=== PATIENT | female | born 1950 | race Caucasian/White ===

== ENCOUNTER 2017-04-13 00:42 | Day surgery (SDC) | payer MEDICARE, MEDICAID ==
[~2017-04-13 00:42] MED LIST: ARFO15VI2 IH; ATRV10T PO; BUDE0.5A NEB; DILT360C26 PO; DOCU250C2 PO; FLUO40CA12 PO; FRSM80T PO; IMAT400T PO; INSLIS SUBQ; INSU100I13 SUBQ; IPRA3AMP IH; Insulin Lispro SUBQ; MELA1TAB10 PO; POTASSIUM PO; PRE10 PO; QUET25TA PO; TORS20TA PO; WARF2.5T82 PO; WARF5TAB7 PO
[2017-04-13] MEDS ORDERED: SPIR50TA2 PO (11:20)
[2017-04-13] MEDS ORDERED: ACET325T51 PO (11:20)
--- NOTE | 2017-04-13 11:22 | NUR ---
Bladder scan PVR results are zero mls in bladder. No intervention indicated.
== END 2017-04-13 23:59 | disposition home or self-care (01) ==
LOC: MOCO 00:42
PROVIDERS: ATTEND Student in an Organized Health Care Education/Training Program
DX: R33.9 Retention of urine, unspecified (principal)
CPT/HCPCS: 51798; G0463

== ENCOUNTER 2017-04-16 07:07 | Emergency (ER) | payer MEDICARE, MEDICAID ==
[~2017-04-16] VITALS: Ht 165.1 cm; Wt 129.6 kg
[~2017-04-16 07:07] MED LIST changes: +ACET325T51 PO; +SPIR50TA2 PO
[2017-04-16 07:25] VITALS: BP 126/53; PULSE 74; RESP 20; O2SAT 99
--- NOTE | 2017-04-16 07:30 | ED.REPORT ---
HPI-General Illness Date of Service April 16, 2017 ED Provider: Jak Camarillo MD 67 year old female with a history of diabetes, GERD, COPD, HTN, and Hyperlipidemia presents to the ER via EMS from [facility] due to low blood sugar. Her blood sugar is typically in the 200's. When staff contacted a local physician they were instructed to increase patient's Lantus dose. This morning her sugar dropped to the 40's and staff called EMS. Staff at [facility] also note that patient has been increasingly confused lately, that she suffered a ground level fall yesterday, unwitnessed. Currently the patient complains of a mild headache, but denies any pain or other symptoms. Nursing Notes Stated Complaint: LOW BLOOD SUGAR Chief Complaint: General Complaint Nursing Notes Reviewed: Yes Allergies: Coded Allergies: amlodipine (Verified Allergy, Unknown, 11/21/14) latex (Verified Adverse Reaction, Intermediate, Rash, 05/19/11) JESSICA Inhibitors (Verified Adverse Reaction, Mild, COUGH, 09/18/09) montelukast (Verified Adverse Reaction, Mild, DIARRHEA, 09/18/09) Scheduled ([Insulin Lispro]) 100 UNIT/ML INJ 10 UNIT SUBQ AC ([Potassium]) PO DAILY UNSURE OF STRENGTH Arformoterol Tartrate (Brovana) 15 Mcg/2 Ml Vial.neb 15 MCG IH BID Atorvastatin (Lipitor) 10 Mg Tab 10 MG PO HS Budesonide (Pulmicort) 0.5 Mg/2 Ml Nebu 0.5 MG NEB BID Diltiazem ER (Cardizem CD) 360 Mg Cap.er.24h 360 MG PO DAILY Docusate Sodium (Docusate Sodium) 250 Mg Capsule 250 MG PO BID Famotidine (Famotidine) 20 Mg Tablet 20 MG PO BID Fluoxetine (Prozac) 40 Mg Capsule 40 MG PO DAILY Furosemide (Furosemide) 80 Mg Tab 40 MG PO AM Imatinib Mesylate (Gleevec) 400 Mg Tablet 400 MG PO DAILY Insulin Glargine (Lantus U100 Solostar Insulin Pen) 100 Unit/Ml Inj 27 UNIT SUBQ INS Insulin Human Lispro (HumaLOG U100 Insulin Vial) 100 Unit/Ml Unit 0 SUBQ TID- INSULIN Check blood sugars before meals and at bedtime. Use correction factor only before meals. Blood Sugar Lispro Correction: <151, 0 units; 151-175, 1 unit; 176-200, 2 units; 201-225, 3 units; 226-250, 4 units; 251-275, 5 units; 276-300 , 6 units; 301-325, 7 units; 326-350, 8 units; 351-375, 9 units; 376-400, 10 units; >400, 12 units. Insulin Human Lispro (HumaLOG U100 Insulin Vial) 100 Unit/Ml Unit 8 UNIT SUBQ TIDWM Ipratropium/Albuterol Sulfate (Iprat-Albut 0.5-3(2.5) mg/3 mL Inhalant Soln) 3 Ml Ampul.neb 3 ML IH QID Melatonin (Melatonin 1 mg Tablet) 1 Each Tablet 9 MG PO HS Prednisone (PredniSONE) 10 Mg Tablet 0 PO DAILY Prednisone taper: Take 2 tabs po b.i.d. for 2 days; then take 2 tabs in the morning and 1 tab in the evening for 3 days; then take 1 tab po b.i.d for 3 days ; then take 1 tab po daily for 3 days. Spironolactone (Spironolactone) 50 Mg Tablet 50 MG PO DAILY Torsemide (Demadex) 20 Mg Tablet 20 MG PO DAILY Warfarin Sodium (Warfarin Sodium) 5 Mg Tablet 5 MG PO SuTuThSa Warfarin Sodium (Warfarin Sodium) 2.5 Mg Tablet 2.5 MG PO MOWEFR Scheduled PRN Acetaminophen (Acetaminophen) 325 Mg Tablet 650 MG PO Q4H PRN PRN For Fever Hydrocodone-Acetaminophen 5-325 mg (Hydrocodone-Acetaminophen 5-325 mg) 1 Each Tablet 1 TABLET PO Q6H PRN PRN For Pain Quetiapine Fumarate (Seroquel) 25 Mg Tablet 25 MG PO HS PRN PRN For Insomnia General Time Seen by MD: 07:28 Chief Complaint Other (Low Blood Sugar) Hx Obtained From: Patient Arrived By: Ambulance Sudden in Onset?: No Onset Occurred: 1 - 4 hours ago Symptom Duration: Since onset Context Related History: Reports COPD, Reports Diabetes mellitus Similar Sx Previous: No Past Medical History Past Medical History Acute hypoxic respiratory failure post hernia repair (2010) Morbidly obese History of atypical chest pain Restless leg syndrome Reports: Asthma, COPD, Diabetes mellitus, GERD, Hyperlipidemia, Hypertension Past Surgical History Umbilical hernia repiar Family History Noncontributory Smoking History Never Smoker Social History Other Social History: Ambulatory Status Wheelchair Review of Systems Full Review of Systems Musculoskeletal: Denies: Back pain, Extremity pain, Joint pain, Lumbar pain, Neck pain, Thoracic pain Neurologic: Reports: Confusion, Headache Complete sys rev & neg: except as marked. Physical Exam Vital Signs Vital Signs Date Time Temp Pulse Resp B/P Pulse Ox O2 Delivery O2 Flow Rate FiO2 04/16/17 09:41 35.2 84 22 129/63 98 Nasal Cannula 4 04/16/17 09:18 84 22 129/63 98 Nasal Cannula 4 04/16/17 07:53 84 16 132/55 98 04/16/17 07:25 35.2 74 20 126/53 99 Nasal Cannula 4 Initial VS: Reviewed Extremities: Vascular intact, Neuro intact, No swelling, No tenderness Skin: Warm, Dry, No cyanosis Neurologic: Alert General/Constitutional: Awake, Alert, Well developed Appearance / Presentation: Positive: Obese Head / Eyes: Normocephalic, PERRL, EOMI Subconjunctival hemorrhage, right eye. Neck: Supple, Full range of motion, No midline vertebral tend Respiratory / Chest: Breath sounds NL, No respiratory distress, No rales, No rhonchi, No wheezing Cardiovascular: Heart rate NL, Regular rhythm, Heart sounds NL, Cap refill not delayed, Peripheral circulation NL Abdomen: Soft, Non-tender, No guarding, No rebound Back: Inspection NL, Painless range of motion, Non-tender, No CVA tenderness Neurologic: Speech NL, No motor deficits, No sensory deficits, CN II - XII intact Mental Status: Positive: Disoriented to place Interpretation & Diagnostics Lab Results Interpretation Result Diagram: 04/16/17 0810 04/16/17 0810 Test 04/16/17 08:10 White Blood Count 5.4th/mm3 (3.8-10.1) Red Blood Count 3.33mil/mm3 (3.90-5.20) Hemoglobin 10.9g/dL (12.0-15.6) Hematocrit 33.0% (35.0-46.0) Mean Corpuscular Volume 99.1fL (81-100) Mean Corpuscular Hemoglobin 32.7pg (27.0-35.0) Mean Corpuscular Hemoglobin Concent 33.0% (32.0-37.0) Red Cell Distribution Width 16.1% (12.3-15.4) Platelet Count 255bil/L (150-400) Neutrophils (%) (Auto) 57.9% (40-74) Lymphocytes (%) (Auto) 20.9% (14-46) Monocytes (%) (Auto) 16.0% (4-12) Eosinophils (%) (Auto) 2.8% (0-5) Basophils (%) (Auto) 0.9% (0-3) Prothrombin Time 31.3sec (8.1-12.5) Prothromb Time International Ratio 2.86ratio Sodium Level 143mEq/L (134-144) Potassium Level 4.0mEq/L (3.5-5.2) Chloride Level 103mEq/L (97-108) Carbon Dioxide Level 30mmol/L (18-29) Blood Urea Nitrogen 23mg/dL (8-27) Creatinine 1.82mg/dL (0.57-1.00) Estimat Glomerular Filtration Rate 40mL/min (>59) Glucose Level 77mg/dL (60-99) Calcium Level 8.7mg/dL (8.5-10.1) Total Bilirubin 0.2mg/dL (0.0-1.2) Aspartate Amino Transf (AST/SGOT) 33U/L (0-50) Alanine Aminotransferase (ALT/SGPT) 22U/L (0-32) Alkaline Phosphatase 54U/L (25-165) Total Protein 5.0g/dL (6.4-8.4) Albumin 3.1g/dL (3.4-5.0) Hold [place] Top Tube Received (Received) CT Head Interpretation IMPRESSION: 1. Small right frontoparietal convexity subdural hematoma. No associated mass effect. 2. Small right frontal subdural calcification, benign 3. Mild age related atrophy and chronic deep white matter ischemic changes. 4. Chronic sinusitis. Note: Report called to Dr. Camarillo in the ED at 0813 hrs. on 04/16/2017 Dictated by: Gian Mitchell M.D. on 04/16/2017 at 8:02 Approved by: Gian Mitchell M.D. on 04/16/2017 at 8:16 Study: Head CT no contrast Interpretation / Wet Read by: Interpret - Radiologist Re-Eval/Medical Decision Med Decision/Clinical Course 67-year-old female history of atrial fibrillation on warfarin presenting with hypoglycemia from assisted living facility. Apparently they increased her Lantus last night and this morning her blood sugar was in the 40s to 50s. She had decreased level of consciousness. Paramedics arrived and gave her dextrose and her blood sugar stabilized. There was some questionable fall yesterday. The patient did not recall this. I did perform a CT head which showed a subdural hematoma on Coumadin. Her INR is 2.8. Per hospital protocol, 2500 units PCC and vitamin K 10 mg given. Patient's GCS was 15 at time of transfer to [facility] for higher level of care. Accepting doctor as above. Critical care time billed. Source of Hx: Old records Time of Eval: 08:52 Re-Evaluation/Progress Note: GCS [address] results and need for transfer to [facility]. Patient understands and agrees to the plan. All other questions addressed. Consultation : Call Returned at: 08:22 Note: Discussed patient case with Dr. Vargas, ER Physician at [facility], accetps transfer. Transport via airlift. Counseled Regarding: Diagnosis, Lab results, Need for transfer Discharge & Departure Primary Impression: Subdural hematoma Additional Impressions: Warfarin anticoagulation Hypoglycemia Disposition: Transfer, Acute Care Facility Receiving Hospital: [facility] Transfer Accepted: Yes Transfer Accepted at: 08:27 Transfer Reason: Higher level of care, Trauma Spoke with: Emergency physician (Dr. Vargas) Patient Status: Stable for transfer Patient Informed: Yes Discharge Condition All VS Reviewed: Yes Condition: Stable Referrals: Geri Joseph MD (PCP) Crit Care Except Billable Proc Time Spent: 30-74 minutes, 75-104 minutes (80 minutes) Services Performed: Patient management by me, Time spent at bedside, Reviewing test results, Reviewing imaging, Discussing patient care, Documentation in record Scribe Attestation Portions of this note were transcribed by Tor Emmanuel. I, Dr. Camarillo, personally performed the history, physical exam and medical decision-making; I reviewed and confirmed the accuracy of the information in the transcribed note. Signed by: Kel Cortez, 04/16/2017 at 09:05 copies to: Geri Joseph MD, Ben M MD April 16, 2017 07:30 TOR EMMANUEL April 16, 2017 07:39
[2017-04-16] MEDS ORDERED: 0.9% Sodium Chloride 500 ML IV ONE (07:37)
[2017-04-16] MEDS ORDERED: Ondansetron 2 mg/mL 2 mL Inj IV PRN (07:40)
[2017-04-16 07:53] VITALS: BP 132/55; PULSE 84; RESP 16; O2SAT 98
[2017-04-16 08:16] LABS: BASOPHILS % (AUTO) 0.9 % (0-3); EOSINOPHILS % (AUTO) 2.8 % (0-5); Mean Corpuscular Hemoglobin 32.7 pg (27.0-35.0); Mean Corpuscular Volume 99.1 fL (81-100); NEUTROPHILS % (AUTO) 57.9 % (40-74); Platelet Count 255 bil/L (150-400)
--- NOTE | 2017-04-16 08:17 | DRSVH ---
PROCEDURE: CT BRAIN WITHOUT CONTRAST ([id number]) INDICATIONS: trauma on blood thinners TECHNIQUE: Noncontrast 4.5 mm thick angled axial sections acquired from the foramen magnum to the vertex, with c oronal reformats. COMPARISON: None. FINDINGS: Image quality: Head is rotated within the gantry CSF spaces: Basal cisterns are patent. No extra-axial fluid collections. The ventricles are symmet mona in size and shape. Brain: A small focus of subdural radiodensity is present in the right frontal parietal region, 5 mm i n thickness by 8 mm in size, attenuation 82, compatible with hematoma. The underlying brain shows no apparent edema or mass effect. More inferiorly over the right frontal lobe is a 5 x 9 mm subdural calcification, attenuation 512, ca lcified dural plaque versus burned out meningioma. There is mild cerebral volume loss for age, with resultant ventricular and sulcal prominence. There are mild periventricular and deep white matter chronic small vessel ischemic changes. There is intra cranial internal carotid artery atherosclerosis. Skull and face: Asymmetry in the soft tissues overlying the frontal parietal region left greater bonny n right probably projectional related to rotation of the head, possibility of scalp edema or contusio n on the left not excluded. Correlate clinically. No underlying fracture. Calvarium and visualized fa cial bones appear intact, without suspicious lesions. Sinuses: Visualized sinuses show retention cysts or polyps in the maxillary sinuses and mucous membr ane thickening in the right anterior sphenoidal air cell, otherwise sinuses and mastoids are clear. IMPRESSION: 1. Small right frontoparietal convexity subdural hematoma. No associated mass effect. 2. Small right frontal subdural calcification, benign 3. Mild age related atrophy and chronic deep white matter ischemic changes. 4. Chronic sinusitis. Note: Report called to Dr. Camarillo in the ED at 0813 hrs. on 04/16/2017 Dictated by: Gian Mitchell M.D. on 04/16/2017 at 8:02 Approved by: Gian Mitchell M.D. on 04/16/2017 at 8:16
[2017-04-16] MEDS ORDERED: Phytonadione (Adult) 10 MG in Dextrose 5%-Pha MIX 50 ML IV ONE (08:30)
[2017-04-16 08:31] LABS: INR 2.86 ratio
[2017-04-16] MEDS ORDERED: FAMO20TA4 PO (08:33)
[2017-04-16] MEDS ORDERED: HYDR-4003 PO (08:34)
[2017-04-16] MEDS ORDERED: Phytonadione (Adult) 10 mg/50 mL NS IV ONE ×2 (08:40)
[2017-04-16] MEDS ORDERED: [UNRECOGNIZED DRUG - OTHER] IV ONE ×2 (08:45)
[2017-04-16] MEDS ORDERED: PROTHROMBIN COMPLEX IV ONE ×2 (08:45)
[2017-04-16 09:18] VITALS: BP 129/63; PULSE 84; RESP 22; O2SAT 98
[2017-04-16 09:41] VITALS: BP 129/63; PULSE 84; RESP 22; O2SAT 98
== END 2017-04-16 09:42 | disposition short-term general hospital (02) ==
LOC: SED 07:07 → EDBD 07:07 → SED 09:42
DX: I62.00 Nontraumatic subdural hemorrhage, unspecified (principal); E11.649 Type 2 diabetes mellitus with hypoglycemia without coma; W18.30XA Fall on same level, unspecified, initial encounter; Y92.129 Unspecified place in nursing home as the place of occurrence of the external cause; Y93.89 Activity, other specified; Y99.8 Other external cause status; K21.9 Gastro-esophageal reflux disease without esophagitis; J44.9 Chronic obstructive pulmonary disease, unspecified; I10 Essential (primary) hypertension; E78.5 Hyperlipidemia, unspecified; J45.909 Unspecified asthma, uncomplicated; E66.01 Morbid (severe) obesity due to excess calories; R40.2410 Glasgow coma scale score 13-15, unspecified time; Z68.42 Body mass index [BMI] 45.0-49.9, adult; Z79.01 Long term (current) use of anticoagulants; Z79.4 Long term (current) use of insulin; Z88.8 Allergy status to other drugs, medicaments and biological substances
CPT/HCPCS: 36415; 70450; 80053; 82948; 85025; 85610; 96361; 96374; 96375; 99291; 99292; C9132; J3430; J7030

== ENCOUNTER 2017-05-25 19:28 | Inpatient (IN) | payer MEDICARE, MEDICAID ==
[~2017-05-25] VITALS: Ht 167.6 cm; Wt 108.9 kg
[~2017-05-25 19:28] MED LIST changes: +FAMO20TA4 PO; +HYDR-4003 PO
[2017-05-25 19:31] VITALS: BP 115/67; PULSE 65; RESP 16; O2SAT 97
[2017-05-25 20:29] LABS: BASOPHILS % (AUTO) 0.1 % (0-3); EOSINOPHILS % (AUTO) 0.3 % (0-5); MONOCYTES % (AUTO) 7.2 % (4-12); Mean Corpuscular Hemoglobin 32.1 pg (27.0-35.0); Mean Corpuscular Volume 97.2 fL (81-100); NEUTROPHILS % (AUTO) 77.5 % (40-74); Platelet Count 213 bil/L (150-400)
[2017-05-25 21:02] LABS: Magnesium 2.3 mg/dL (1.6-2.6)
--- NOTE | 2017-05-25 21:03 | ED.REPORT ---
HPI-General Illness Date of Service May 25, 2017 ED Provider: Dr. Chele Ann MD A 67 year old female with a history of A-fib on Warfarin, diabetes mellitus, GERD, COPD, hypertension and hyperlipidemia presents to the ED from [facility] with hyperkalemia that began earlier this evening. Recent blood draw this afternoon revealed elevated K+ levels and she was directed to the ED. She is currently asymptomatic. Patient was seen in the ED in 03/2017 for a subdural hematoma and was sent to [facility]. She denies any recent fever, chills, SOB, chest pain, nausea, vomiting or diarrhea. PCP recently added spirolactone to her medication list. Nursing Notes Stated Complaint: HIGH POTASSIUM Chief Complaint: General Complaint Nursing Notes Reviewed: Yes Allergies: Coded Allergies: amlodipine (Verified Allergy, Unknown, 05/25/17) latex (Verified Adverse Reaction, Intermediate, Rash, 05/25/17) JESSICA Inhibitors (Verified Adverse Reaction, Mild, COUGH, 05/25/17) montelukast (Verified Adverse Reaction, Mild, DIARRHEA, 05/25/17) Scheduled Arformoterol Tartrate (Brovana) 15 Mcg/2 Ml Vial.neb 15 MCG IH BID Atorvastatin (Lipitor) 10 Mg Tab 10 MG PO HS Cholecalciferol (Vitamin D3) (Vitamin D3) 3,000 Unit Tablet 3,000 UNIT PO DAILY Diltiazem ER (Cardizem CD) 360 Mg Cap.er.24h 360 MG PO DAILY Famotidine (Famotidine) 20 Mg Tablet 20 MG PO BID Fluoxetine (Prozac) 40 Mg Capsule 40 MG PO DAILY Furosemide (Lasix) 40 Mg Tablet 120 MG PO DAILY Imatinib Mesylate (Gleevec) 400 Mg Tablet 400 MG PO DAILY Insulin Glargine (Lantus U100 Solostar Insulin Pen) 100 Unit/1 Ml Insuln.pen 18 UNIT SUBQ DAILY Insulin Glargine (Lantus U100 Solostar Insulin Pen) 100 Unit/1 Ml Insuln.pen 22 UNIT SUBQ HS Insulin Human Lispro (HumaLOG U100 Insulin Vial) 100 Unit/Ml Unit 0 SUBQ TID- INSULIN Check blood sugars before meals and at bedtime. Use correction factor only before meals. Blood Sugar Lispro Correction: <151, 0 units; 151-175, 1 unit; 176-200, 2 units; 201-225, 3 units; 226-250, 4 units; 251-275, 5 units; 276-300 , 6 units; 301-325, 7 units; 326-350, 8 units; 351-375, 9 units; 376-400, 10 units; >400, 12 units. Insulin Lispro (HumaLOG U100 Insulin Pen) 100 Unit/1 Ml Insuln.pen 4 UNIT SUBQ TIDWM Blood Sugar Lispro Correction <151 0 units 151-175 1 unit 176-200 2 units 201-225 3 units 226-250 4 units 251-275 5 units 276-300 6 units 301-325 7 units 326-350 8 units 351-375 9 units 376-400 10 units >400 12 units Check blood sugars before meals and at bedtime. Use correction factor only before meals. Ipratropium/Albuterol Sulfate (Iprat-Albut 0.5-3(2.5) mg/3 mL Inhalant Soln) 3 Ml Ampul.neb 3 ML IH Q4HWA Magnesium Oxide (Magnesium) 400 Mg Tablet 400 MG PO BID PredniSONE (PredniSONE) 1 Mg Tab 9 MG PO UD Spironolactone (Spironolactone) 25 Mg Tablet 25 MG PO DAILY Warfarin Sodium (Warfarin Sodium) 2.5 Mg Tablet 2.5 MG PO MoWeThSat Warfarin Sodium (Warfarin Sodium) 5 Mg Tablet 5 MG PO SunTueFri Scheduled PRN Acetaminophen (Acetaminophen) 325 Mg Tablet 650 MG PO Q4H PRN PRN For Fever Hydrocodone-Acetaminophen 5-325 mg (Hydrocodone-Acetaminophen 5-325 mg) 1 Each Tablet 1 TABLET PO Q6H PRN PRN For Pain Quetiapine Fumarate (Seroquel) 25 Mg Tablet 25 MG PO HS PRN PRN For Insomnia General Time Seen by MD: 21:03 Chief Complaint Other (Hyperkalemia) Hx Obtained From: Patient Arrived By: Walk-in Sudden in Onset?: No Onset Occurred: 1 - 4 hours ago Symptom Duration: Since onset Associated with: Denies: Chest pain, Fever, Nausea, Vomiting Pertinent Negative: Pt denies other symptoms Recent Healthcare: Recent doctor visit, Recent hospitalization Past Medical History Past Medical History Subdural hematoma (03/2017) Acute hypoxic respiratory failure post hernia repair (2010) Morbidly obese History of atypical chest pain Restless leg syndrome Reports: Asthma, COPD, Diabetes mellitus, GERD, Hyperlipidemia, Hypertension Past Surgical History Umbilical hernia repiar Family History Noncontributory Smoking History Never Smoker Social History Lives at [facility] Other Social History: , Lives in care home Ambulatory Status Wheelchair Review of Systems Full Review of Systems Constitutional: Denies: Chills, Fever Respiratory: Denies: Shortness of breath Cardiovascular: Denies: Chest pain GI: Denies: Nausea, Vomiting Complete sys rev & neg: except as marked. Physical Exam Vital Signs Vital Signs Date Time Temp Pulse Resp B/P Pulse Ox O2 Delivery O2 Flow Rate FiO2 05/25/17 23:00 37.1 70 16 95 Room Air 05/25/17 19:31 37.1 65 16 115/67 97 Room Air Initial VS: Reviewed Neck: Supple, Non-tender, Full range of motion Extremities: Vascular intact, Neuro intact, No tenderness Skin: Warm, Dry, No cyanosis Neurologic: Alert, Oriented, Nonfocal Psychiatric: Mood/affect normal, Behavior normal, Normal thought content General/Constitutional: Awake, Alert, No acute distress Appearance / Presentation: Positive: Obese, morbidly Head / Eyes: Atraumatic, Normocephalic, PERRL Respiratory / Chest: Atraumatic, Breath sounds NL, Breath sounds = bilat, No respiratory distress Cardiovascular: Heart rate NL, Regular rhythm, Heart sounds NL Lower Ext Edema: Positive: Non-Pitting (Bilateral LE edema) Abdomen: Atraumatic, Soft, Non-tender Interpretation & Diagnostics Lab Results Interpretation Result Diagram: 05/26/17 0242 05/26/17 0242 Test 05/25/17 20:18 05/25/17 21:53 Magnesium Level 2.3mg/dL (1.6-2.6) Hold [place] Top Tube Received (Received) Urine Color Yellow (YELLOW) Urine Appearance Hazy (CLEAR,HAZY) Urine pH 6.0 (5.0-8.0) Urine Specific [place] 1.010 (1.003-1.035) Urine Protein Tracemg/dL (NEG,TRACE) Urine Glucose (UA) Negativemg/dL (NEGATIVE) Urine Ketones Negativemg/dL (NEGATIVE) Urine Occult Blood Trace (NEGATIVE) Urine Nitrite Negative (NEGATIVE) Urine Bilirubin Negative (NEGATIVE) Urine Urobilinogen Normalmg/dL (NORMAL) Urine Leukocyte Esterase Small (NEGATIVE) Urine RBC 0-2/hpf (0-2) Urine WBC 11-50/hpf (0-5) Urine Epithelial Cells Few/hpf (NONE-MOD) Urine Crystals None seen (NONE SEEN) Urine Bacteria Few/hpf (NONE-FEW) Urine Hyaline Casts 5/20/lpf (NONE) Urine Granular Casts None seen (NONE SEEN) Urine Waxy Casts None seen (NONE SEEN) Urine Red Blood Cell Casts None seen (NONE SEEN) Urine White Blood Cell Casts None seen (NONE SEEN) Urine Mucus None seen (None Seen) Urine Trichomonas None seen (NONE SEEN) Urine Yeast None (NONE SEEN) Urinalysis Comment None Urine Culture Reflexed Indicated Pulse Oximetry Interpretation Pulse Oximetry: Pulse Ox normal, On room air ECG Interpretation ECG Interpretation: Sinus rhythm Rate 66 No evidence of hyperkalemia Time: 21:08 Interpreted by: ED physician Rhythm Strip Interpretation : Rhythm Strip Interpretation: No PT waves Time: 21:08 Rhythm Strip Interpretation: Interpreted by me, Rate (66), Normal sinus rhythm BMP / CMP Interpretation K+ elevated (6.2), Creatinine elevated (3.48) Cardiac / Vascular Lab Interp Troponin abnormal (0.113) Re-Eval/Medical Decision Med Decision/Clinical Course Patient presents with hyperkalemia and prerenal azotemia with acute on chronic kidney injury. She was treated with careful IV hydration and treatment for hyperkalemia. Her bladder scan was reassuring. No evidence of obstructive uropathy. EKG did not show signs of hyperkalemia. She looked and felt well. I suspect this is volume depletion superimposed with potassium sparing diuretic use. As such she will be carefully hydrated and we will hold her diuretics. I consulted with nephrology and the hospitalist. Time of Eval: 21:39 Patient Status: Condition improved Re-Evaluation/Progress Note: Pt is informed of her concerning lab results and the plan to admit. All questions are addressed. Consultation #1: Referral / Consult Name: Rik Garcia MD Consulted With: Urology Call Returned at: 21:39 Assistant Commissioner: Will see patient, Agrees with eval, Agrees with plan Consultation #2: Referral / Consult Name: Joan Almaraz DO Consulted With: Hospitalist Call Returned at: 22:01 Assistant Commissioner: Will see patient, Agrees with eval, Agrees with plan, Accepts admit Counseled Regarding: Diagnosis, Lab results, Need for admission Discharge & Departure Primary Impression: Hyperkalemia Additional Impressions: Acute renal insufficiency Urinary tract infection Urinary tract infection type: site unspecified Hematuria presence: without hematuria Qualified Code: N39.0 - Urinary tract infection, site not specified Disposition: ADMITTED TO HOSPITAL Discharge Condition All VS Reviewed: Yes Condition: Stable Referrals: Geri Joseph MD (PCP) Crit Care Except Billable Proc Time Spent: 30-74 minutes (60 minutes managing hyperkalemia and hypovolemia) Services Performed: Patient management by me, Time spent at bedside, Reviewing test results, Reviewing imaging, Discussing patient care, Documentation in record Scribe Attestation Portions of this note were transcribed by David Orr. I, Dr. Ann personally performed the history, physical exam and medical decision-making; I reviewed and confirmed the accuracy of the information in the transcribed note. Signed by: Kel Kendall, 05/25/17 1449. copies to: Geri Joseph MD, Todd P DO May 25, 2017 21:03 DAVID ORR May 25, 2017 21:11 None seen (NONE SEEN) Urine Bacteria Few/hpf (NONE-FEW) Urine Hyaline Casts 5/20/lpf (NONE) Urine Granular Casts None seen (NONE SEEN) Urine Waxy Casts None seen (NONE SEEN) Urine Red Blood Cell Casts None seen (NONE SEEN) Urine White Blood Cell Casts None seen (NONE SEEN) Urine Mucus None seen (None Seen) Urine Trichomonas None seen (NONE SEEN) Urine Yeast None (NONE SEEN) Urinalysis Comment None Urine Culture Reflexed Indicated Pulse Oximetry Interpretation Pulse Oximetry: Pulse Ox normal, On room air ECG Interpretation ECG Interpretation: Sinus rhythm Rate 66 No evidence of hyperkalemia Time: 21:08 Interpreted by: ED physician Rhythm Strip Interpretation : Rhythm Strip Interpretation: No PT waves Time: 21:08 Rhythm Strip Interpretation: Interpreted by me, Rate (66), Normal sinus rhythm BMP / CMP Interpretation K+ elevated (6.2), Creatinine elevated (3.48) Cardiac / Vascular Lab Interp Troponin abnormal (0.113) Re-Eval/Medical Decision Time of Eval: 21:39 Patient Status: Condition improved Re-Evaluation/Progress Note: Pt is informed of her concerning lab results and the plan to admit. All questions are addressed. Consultation #1: Referral / Consult Name: Rik Garcia MD Consulted With: Urology Call Returned at: 21:39 Assistant Commissioner: Will see patient, Agrees with eval, Agrees with plan Consultation #2: Referral / Consult Name: Joan Almaraz DO Consulted With: Hospitalist Call Returned at: 22:01 Assistant Commissioner: Will see patient, Agrees with eval, Agrees with plan, Accepts admit Counseled Regarding: Diagnosis, Lab results, Need for admission Discharge & Departure Primary Impression: Hyperkalemia Additional Impressions: Acute renal insufficiency Urinary tract infection Urinary tract infection type: site unspecified Hematuria presence: without hematuria Qualified Code: N39.0 - Urinary tract infection, site not specified Disposition: ADMITTED TO HOSPITAL Discharge Condition All VS Reviewed: Yes Condition: Stable Referrals: Geri Joseph MD (PCP) Kel Attestation Portions of this note were transcribed by David Orr. I, Dr. Ann personally performed the history, physical exam and medical decision-making; I reviewed and confirmed the accuracy of the information in the transcribed note. Signed by: Kel Kendall, 05/25/17 2214. copies to: Geri Joseph MD, Todd P DO May 25, 2017 21:03 DAVID ORR May 25, 2017 21:11
[2017-05-25 21:14] LABS: TROPONIN T 0.113 ug/L (0.0-0.011)
[2017-05-25 21:23] LABS: INR 2.93 ratio
[2017-05-25] MEDS ORDERED: Insulin Human REGular 300 Unit/3 mL Inj IV SCH (21:30)
[2017-05-25] MEDS ORDERED: 0.9% Sodium Chloride 1,000 ML IV ONE (21:30)
[2017-05-25 22:12] LABS: APPEARANCE,URINE HAZY (CLEAR,HAZY); COLOR,URINE YELLOW (YELLOW); OCCULT BLOOD,URINE TRACE (NEGATIVE); UROBILINOGEN,URINE NORMAL (NORMAL)
[2017-05-25] MEDS ORDERED: cefTRIAXone Inj 2,000 MG in Dextrose 5% Minibag Plus 50 ML IV ONE (22:15)
[2017-05-25] MEDS ORDERED: Insulin Human REGular-Omnicell 100 Unit/mL IV ONE ×2 (22:20→22:25)
[2017-05-25 23:00] VITALS: PULSE 70; RESP 16; O2SAT 95
[2017-05-25] MEDS ORDERED: Ondansetron 2 mg/mL 2 mL Inj IVPUSH PRN (23:30)
[2017-05-25] MEDS ORDERED: Polyethylene Glycol (PEG) 17 Gm Powder PO PRN (23:30)
[2017-05-25] MEDS ORDERED: Alum-Mag Hydrox-Simeth 30 mL Suspension PO PRN (23:30)
[2017-05-25] MEDS ORDERED: INSULIN LISPRO SUBQ SCH (23:35)
[2017-05-25] MEDS ORDERED: INSULIN GLARGINE 27 UNIT SUBQ SCH (23:35)
[2017-05-26] VITALS (14 sets, daily range): BP systolic 114–158; BP diastolic 59–84; PULSE 61–85; RESP 16–20; O2SAT 95–99
[2017-05-26] MEDS ORDERED: HYDROcodone-APAP 5-325 mg Tablet PO PRN (00:05)
[2017-05-26] MEDS ORDERED: Heparin 5,000 Unit/mL Inj SUBQ SCH (00:30)
[2017-05-26] MEDS ORDERED: Glucose 40% Oral Gel 15 Gm Tube PO PRN ×2 (00:35→18:20)
[2017-05-26] MEDS ORDERED: Dextrose 10% 250 ML IV PRN ×2 (00:40→18:20)
[2017-05-26] MEDS: 0.9% Sodium Chloride 1,000 ML IV SCH ×3 (01:21→21:08)
--- NOTE | 2017-05-26 01:23 | PCM.HPMED ---
Subjective Date of Service May 26, 2017 Primary Provider: Admitting Physician: Joan Almaraz DO Primary Care Physician: Geri Joseph MD Attending Physician: Joan Almaraz DO Allergies Coded Allergies: amlodipine (Verified Allergy, Unknown, 05/25/17) latex (Verified Adverse Reaction, Intermediate, Rash, 05/25/17) JESSICA Inhibitors (Verified Adverse Reaction, Mild, COUGH, 05/25/17) montelukast (Verified Adverse Reaction, Mild, DIARRHEA, 05/25/17) PMH Social History Hx Alcohol Use: No Hx Substance Use: No Hx Tobacco Use: No Smoking Status: Never Smoker Exam Vital Signs Vital Sign - Last Date Time Temp Pulse Resp B/P Pulse Ox O2 Delivery O2 Flow Rate FiO2 05/25/17 23:00 37.1 70 16 95 Room Air 05/25/17 19:31 115/67 Lab and Diagnostics Result Diagram: 05/25/17201705/25/172017 Julien Garrison May 26, 2017 01:23
[2017-05-26] MEDS ORDERED: IPRA3AMP IH (02:41)
[2017-05-26] MEDS ORDERED: FURO-128 PO (02:41)
[2017-05-26] MEDS ORDERED: WARF5TAB7 PO (02:41)
[2017-05-26] MEDS ORDERED: CHOL3000 PO (02:41)
[2017-05-26] MEDS ORDERED: SPIR25TA3 PO (02:41)
[2017-05-26] MEDS ORDERED: INSU100I18 SUBQ (02:41)
[2017-05-26] MEDS ORDERED: WARF2.5T82 PO (02:41)
[2017-05-26] MEDS ORDERED: INSU100I13 SUBQ ×2 (02:41)
[2017-05-26] MEDS ORDERED: MAGN400T39 PO (02:41)
[2017-05-26] MEDS ORDERED: PRD1T PO (02:41)
[2017-05-26 03:20] LABS: BASOPHILS % (AUTO) 0.3 % (0-3); EOSINOPHILS % (AUTO) 1.3 % (0-5); MONOCYTES % (AUTO) 9.4 % (4-12); Mean Corpuscular Hemoglobin 32.1 pg (27.0-35.0); Mean Corpuscular Volume 97.3 fL (81-100); NEUTROPHILS % (AUTO) 65.9 % (40-74); Platelet Count 178 bil/L (150-400)
--- NOTE | 2017-05-26 03:46 | PCM.HPMED ---
Subjective Date of Service May 26, 2017 Primary Provider: Admitting Physician: Joan Almaraz DO Primary Care Physician: Geri Joseph MD Attending Physician: Joan Almaraz DO Admit Status: From the Emergency Department Chief Complaint: Hyperkalemia History of Present Illness: Patient is a 67 year old female with a history of A-fib on Warfarin, diabetes mellitus, CKD, GERD, COPD, hypertension and hyperlipidemia presents to the ED from [facility] with hyperkalemia. Recent blood draw this afternoon revealed elevated K+ levels and she was directed to the ED. She is currently asymptomatic. Patient was seen in the ED in 03/2017 for a subdural hematoma and was sent to [facility]. She denies any recent dizziness, syncope, fever, chills , SOB, chest pain, palpitations, nausea, vomiting or diarrhea. She was recently started on spironolactone. 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 She is unsure why she was told this, however. On admission, Hb was 11.5, Hct 34.8, K 6.2, BUN 70, Cr 3.48, glucose 230, trop 0.113. UA was positive for 11-50 WBC, negative nitrite, small LE, few bacteria. Review of Systems: Comprehensive review of systems conducted and was negative except for the pertinent positives listed above. Allergies Coded Allergies: amlodipine (Verified Allergy, Unknown, 05/25/17) latex (Verified Adverse Reaction, Intermediate, Rash, 05/25/17) JESSICA Inhibitors (Verified Adverse Reaction, Mild, COUGH, 05/25/17) montelukast (Verified Adverse Reaction, Mild, DIARRHEA, 05/25/17) Home Medications APAP 650 mg q4h PRN Brovana 15 mcg inhaler Atorvastatin 10 mg qhs Diltiazem 360 mg daily Famotidine 20 mg BID Fluoxetine 40 mg daily Furosemide 120 mg daily Harriman 5/325 1 tab q6 PRN Imatinib 400 mg daily Lantus 18 U daily, 22 U qhs Humalog TID correctional scale Ipratropium/albuterol inhaler Prednisone 9 mg daily - on taper Seroquel 25 mg qhs Spironolactone 25 mg daily Warfarin 2.5 mg Thu/Thu//Thu, 5 mg /Thu/Sun PMH Diabetes mellitus GERD Hyperlipidemia Hypertension CKD Atrial fibrillation CML Asthma Subdural hematoma (03/2017) Acute hypoxic respiratory failure post hernia repair (2010) Morbidly obese History of atypical chest pain Restless leg syndrome Surgical History Umbilical hernia repiar Family History Father: Asthma Mother: [place] Aunt: [place] Social History Hx Alcohol Use: No Hx Substance Use: No Hx Tobacco Use: No Smoking Status: Never Smoker Exam Vital Signs Vital Sign - Last Date Time Temp Pulse Resp B/P Pulse Ox O2 Delivery O2 Flow Rate FiO2 05/26/17 01:21 75 05/26/17 01:18 37.1 16 115/67 95 Room Air Exam General: Alert, Oriented X3, Cooperative, No acute distress Head: Normocephalic, atraumatic. External ears normal. Eyes: PERRLA, EOMI. Anicteric sclerae. Mouth: Mouth normal, Mucous membranes moist/pink Neck: Neck supple with full range of motion. Chest& Lungs: Clear to auscultation bilaterally with no crackles, wheezes, or rhonchi. Cardiovascular: Regular rate/rhythm, Normal S1, Normal S2, No murmurs/rubs/ gallops Abdomen: Non-tender, Non-distended, No masses, Normoactive bowel tones, Soft Lab and Diagnostics Result Diagram: 05/25/17201705/25/172017 Assessment & Plan Patient is a 67 year old female with a history of A-fib on Warfarin, diabetes mellitus, CKD, GERD, COPD, hypertension and hyperlipidemia presents to the ED from [facility] with hyperkalemia. Acute kidney injury on chronic kidney disease. - Pt Cr 3.2 on admission, baseline appears to be around 1.8. Secondary to dehydration. - NS @ 120 ml/hr - Avoid nephrotoxic medications - Hold furosemide and spironolactone Hyperkalemia, acute. - K 6.2 on admission. Pt received insulin/dextrose and kayexalate in ED. Secondary to spironolactone. - Monitor on telemetry - Monitor K - Discontinued spironolactone Diabetes mellitus - Glucose 230 on admission. Pt is on BID Lantus. Consider converting to a once- daily dose before discharge. - A1c ordered - Humalog 8 units TID nutritional with low dose correctional scale - Lantus 18 U AM, 22 U qhs Atrial fibrillation - Continue warfarin and diltiazem Bilateral lower extremity edema - Hold furosemide until NORM resolves - Stopped spironolactone CML - Continue imatinib Hyperlipidemia - Continue atorvastatin GERD - Continue famotidine Asthma - Pt currently on prednisone taper - Continue prednisone - Hold home inhalers. Start neb treatment if needed. Depression - Continue fluoxetine, Seroquel Other Chronic Conditions Hypertension Subdural hematoma (03/2017) Acute hypoxic respiratory failure post hernia repair (2010) Morbidly obese History of atypical chest pain Restless leg syndrome - Bowel regimen as needed - Antiemetic as needed Patient is admitted under inpatient status with expected length of stay greater than 2 midnights due to severity of presenting symptoms, risk of adverse event, and complexity of treatment plan. Pain Evaluation: Adequate Pain Control GI Prophylaxis: Not indicated VTE Prophylaxis: Theraputic Anticoag with Warfarin Attending Statement The patient was seen and examined together with house staff on 05/25/2017 and I agree with the history, exam and plan as outlined in the note above. Julien Garrison May 26, 2017 03:46 Joan Almaraz DO May 26, 2017 04:41
--- NOTE | 2017-05-26 05:23 | NUR ---
Admit Pt arrived to PCC room 2001 from ED via bed at approx. 0050; report received from Scarlett Fall RN. All belongings transferred with pt. Pt denied pain or discomfort, VSS, tele SR 70s. Admit documentation complete via patient report, med rec complete via MAR from Juju Reagan received with documentation sent with pt. NS infusing at 120mls/hr. CPOX in room, pt SpO2 96-99% on RA.
[2017-05-26 06:20] LABS: INR 2.72 ratio
[2017-05-26] MEDS ORDERED: Insulin GLARgine 100 Unit/mL Syringe SUBQ SCH ×2 (08:00→21:00)
[2017-05-26] MEDS: Diltiazem CD 180 mg ER24 Capsule PO SCH (08:29)
[2017-05-26] MEDS ORDERED: predniSONE 1 mg Tablet PO SCH (08:30)
[2017-05-26] MEDS ORDERED: cefTRIAXone Inj 1,000 MG in Dextrose 5% Minibag Plus 50 ML IV SCH (08:30)
[2017-05-26] MEDS: predniSONE 5 MG, predniSONE 4 MG PO SCH ×2 (08:36)
[2017-05-26] MEDS: Insulin LISPRO 300 Unit/3 mL Inj SUBQ SCH ×7 (08:41→21:12)
--- NOTE | 2017-05-26 09:14 | PCM.PHAPRO ---
Progress Hyperkalemia Warfarin Management by Pharmacy: -Indication: afib -Home dose: warfarin 5mg on SuTuFr and 2.5mg all other days -[id number] Score: 4 -Drug Interactions: imatinib and fluoxetine -H/H 10.6/32.1 Platelets 178 -Concurrent anticoagulation: none -Coagulation Trends: -May 26-May 2.93 2.72 -0.21 UNK 3.5MG -Plan: inr remains therapeutic. will give warfarin 3.5mg this evening and follow (dose average over 7 days) [facility] May 26, 2017 09:14
[2017-05-26] MEDS: Insulin GLARgine 100 Unit/mL Syringe SUBQ SCH ×2 (09:51→21:12)
--- NOTE | 2017-05-26 11:47 | CONS ---
[address] [address] CONSULTATION REPORT PATIENT: JOHNNIE BURRELL : 1950 MR#: [id number] ADMIT: 05/25/2017 JOB ID: [id number] DATE OF SERVICE: 05/26/2017 NEPHROLOGY CONSULTATION: REASON FOR CONSULTATION: Management of abnormal kidney function. REQUESTING PHYSICIAN: Joan Almaraz DO. CHIEF COMPLAINT: Abnormal blood work, high potassium level. PRESENT ILLNESS: This is a 67-year-old, lady with significant past medical history of chronic kidney disease stage 3, type 2 diabetes, hypertension, chronic atrial fibrillation, CML, asthma, recent history of subdural hematoma, who came to the emergency department from [facility], with abnormal blood work. The patient had blood drawn yesterday and that revealed elevation of potassium level and worsening kidney function. The patient was instructed to come to the emergency department for further investigation. The patient otherwise unremarkable. She denies history of fever, chills, chest pain, shortness of breath, dysuria or hematuria. The patient reported that she has had lower extremity swelling and she was started on spironolactone in March 2017 by her etl bi developer. The visit with her etl bi developer in March 2017, she was instructed to take Lasix 120 mg daily and Aldactone 50 mg daily. She was told to be on fluid restriction 40 ounces a day. At that time, the patient appeared to be hypervolemic. She said that a month ago she weighed 280 pounds. Her current rate is 235 pounds. She reports having some lower extremity swelling but have improved. Her serum creatinines have ranged between 1.7-2.0. She came at this time with a creatinine of 3.48 and BUN of 70. The patient was evaluated by hospitalist last night. Diuretics have been on hold. The patient was started on normal saline 120 cc/hour. UA shows some pyuria. She was started on IV ceftriaxone. Urine culture is pending. Her potassium last night was 6.3. She received Kayexalate along with regular insulin and D10. A repeat potassium level came down to 5.3 this morning. PAST MEDICAL HISTORY: 1. Chronic kidney disease stage 3. 2. Type 2 diabetes, with renal manifestation. 3. Chronic fluid overload. 4. Dyslipidemia. 5. Hypertension. 6. Chronic atrial fibrillation. 7. CML. 8. Asthma. 9. Recent history of subdural hematoma in March 2017. 10. Morbid obesity. 11. Restless legs syndrome. 12. Remote history of respiratory failure after hernia repair in 2010. SURGICAL HISTORY: Status post umbilical hernia repair in 2010. SOCIAL HISTORY: Denies current use of alcohol, tobacco or illicit drugs. She is a intermediate resident. FAMILY HISTORY: Positive for asthma, [place]. ALLERGY: 1. JESSICA INHIBITOR. 2. AMLODIPINE. 3. LATEX. 4. MONTELUKAST. REVIEW OF SYSTEMS: Fourteen point review of system was performed. PHYSICAL EXAMINATION: Vitals: Temperature 36.5, pulse 61, respiratory 16, blood pressure 126/60, O2 sat 97% on room air. General appearance: Awake, alert, oriented x3. No acute distress. Obese, lying in bed comfortably. HEENT: PERRLA. No pallor, no jaundice. No JVD. No lymphadenopathy. No thyroid enlargement. Heart: Regular rhythm. Normal S1, normal S1, S2. Distant heart sounds. Lungs: Decreased breath sound at bases. Expiratory wheezing noted. Abdomen is soft, active bowel sounds. Nontender, nondistended. No hepatosplenomegaly. Extremities: 1+ edema on the lower extremity. LABORATORY: Hemoglobin 10.6, WBC 7.6, platelets 178. Sodium 139, potassium 5.3, chloride 102, bicarb 22, BUN 70, creatinine 3.2, sugar 201. Troponin 0.102. INR 2.72. UA: Specific gravity 1.010, protein trace, RBCs 0-2, WBC 11-50. ASSESSMENT: 1. Acute kidney injury on chronic kidney disease secondary to prerenal azotemia. 2. Hyperkalemia secondary to potassium sparing diuretics and intravascular volume depletion. 3. Chronic lower extremity swelling. 4. Type 2 diabetes. 5. Hypertension. 6. Chronic atrial fibrillation. 7. Asthma. 8. CML. 9. Dyslipidemia. PLAN: 1. Per renal standpoint, we will continue to hold her diuretics for another day or two. I will decrease the rate of normal saline down to 80 cc/hour to prevent further volume overload. 2. Repeat her BMP in the morning. 3. Avoid nephrotoxins. 4. Renally dose medications. Thank you for allowing me to participate in the care of your patient. We will monitor along with you.
--- NOTE | 2017-05-26 17:16 | PCM.PNMED ---
Subjective Date of Service May 26, 2017 Subjective Overnight the patient was admitted to the hospital for hyperkalemia and acute kidney injury found via routine blood draw at [facility]. The patient was asymptomatic on admission but she says that she feels stronger now that she has been hydrated. She denies any fever/chills, chest pain, palpitations, lightheadedness, shortness of breath, dysuria and hematuria. Exam Vital Signs Vital Sign - Last Date Time Temp Pulse Resp B/P Pulse Ox O2 Delivery O2 Flow Rate FiO2 05/26/17 16:29 66 16 97 Room Air 05/26/17 16:13 36.6 130/73 Intake and Output 05/25/17 05/25/17 05/26/17 Cumulative From/Thru 15:00 23:00 07:00 05/25/17 19:31 - 05/26/17 05:59 Intake Total 724 ml 724 ml Output Total 1200 ml 1200 ml Balance -476 ml -476 ml Intake Oral 200 ml 200 ml IV Total 524 ml 524 ml Output Urine Total 1200 ml 1200 ml Bladder Scan Volume Amount 150 183mLs # Voids 2 2 # Bowel Movements 1 1 Exam General: Obese elderly woman lying in bed in NAD HEENT: NCAT. PERRLA, EOMI. Membranes pink and moist without cobblestoning. There is a bruise presenton her left lateral neck/cheek. Neck: Supple without JVD or thyromegaly, but this is hard to evaluate with body habitus CV: RRR, distant heart sounds with normal S1/S2, no rubs/clicks/murmurs Pulm: Expiratory wheezes but otherwise clear to ascultation. No rales/rhonchi. Abdomen: Soft, Obese, Non-tender, Non-distended. Normoactive bowel tones. Could not evaluate organomegaly due to body habitus. Extremities: Mild edema below the knee bilaterally, no cyanosis/clubbing Neuro: A&Ox3. CN 2-12 grossly intact, no focal deficits. Muscle strength normal in all extremities. Psych: Normal mood and aspect, responds appropriately IVs and Medications Medications Reviewed: Medications were reviewed in detail Lab and Diagnostics Result Diagram: 05/26/17 0242 05/26/17 0242 Microbiology UA showed 11-50 WBC, culture has insufficient growth Assessment & Plan Mrs. Jimenez is a 67 year old female with a history of A-fib on Warfarin, diabetes mellitus, CKD, GERD, COPD, hypertension and hyperlipidemia presents to the Emergency Department from [facility] with asymptomatic hyperkalemia. Acute kidney injury on chronic kidney disease, present on admission. Improving. - Patientt Cr 3.2 on admission, baseline appears to be around 1.8. Likely Secondary to dehydration. - Dr. Lemon of Nephrology consulted, appreciate her recommendations: NS decreased to 80ml/hr Hold spironolactone, lasix Avoid nephrotoxic medications Renally dose other medications - Continue to monitor with daily metabolic panel Hyperkalemia, present on admission, acute. Resolved. - Potassium 6.2 on admission, likely secondary to spironolactone and dehydration - Patient received insulin/dextrose and kayexalate in Emergency Department - Continue telemetry - Potassium fell to 5.3 - Continue to hold spironolactone - Continue to monitor with daily metabolic panel Elevated troponin, present on admission, chronic. Improving. - Patient has elevated troponin x2 - Patient reports no chest pain; no telemetry changes - Likely due to acute on chronic kidney injury - Troponin trending down, 1 more pending - Consider cardiology consult if patient becomes symptomatic or telemetry/EKG changes Diabetes mellitus type 2, chronic - Glucose 230 on admission, has fallen to 201 - A1c pending - Humalog 8 units TID nutritional with medium dose correctional scale - Lantus 18 U in the morning, 22 U at night Atrial fibrillation - Continue warfarin and diltiazem Bilateral lower extremity edema - Hold furosemide until NORM resolves - Hold spironolactone CML - Continue imatinib Hyperlipidemia - Continue atorvastatin GERD - Continue famotidine Asthma - Pt currently on prednisone taper - Continue prednisone - Hold home inhalers. Start neb treatment if needed. Depression - Continue fluoxetine, Seroquel Other Chronic Conditions Hypertension Subdural hematoma (03/2017) Acute hypoxic respiratory failure post hernia repair (2010) Morbidly obese History of atypical chest pain Restless leg syndrome - Acetominophen as needed for headache, minor pain, fevers. - Bowel regimen as needed - Antiemetic as needed Disposition: Patient is likely here for 2-3 more days depending on her response to fluid resuscitation and continued acceptable potassium levels. Pain Evaluation: Adequate Pain Control GI Prophylaxis: Not indicated VTE Prophylaxis: Theraputic Anticoag with Warfarin Attending Statement The patient was seen and examined together with Dr. Ascencio on 05/26/2017 and I agree with the history, exam and plan as outlined in the note above. . Derek Ascencio DO May 26, 2017 17:16 Miguel Iverson MD May 26, 2017 19:30
--- NOTE | 2017-05-26 18:28 | NUR ---
Blood Sugar Pts. morning blood sugar was 150 and was given 1UNITS of correctional lispro and 4UNITS out of the scheduled 8UNITS lispro. was made aware and he agreed that 4UNITS was to be given instead of 8UNITS. Pts. lunch blood sugar was 124 and she refused her 8UNITS of scheduled insulin lispro and no sliding scale was given. Pts. dinner blood sugar was 252 and Pt. agreed to take 8UNITS of scheduled insulin lispro plus the sliding scale of 3UNITS for correctional. At this time Pt. is in her chair watching TV with no c/o any sorts. Will continue to monitor.
[2017-05-26 18:44] LABS: BASOPHILS % (AUTO) 0.3 % (0-3); EOSINOPHILS % (AUTO) 0.2 % (0-5); MONOCYTES % (AUTO) 5.2 % (4-12); Mean Corpuscular Hemoglobin 31.8 pg (27.0-35.0); Mean Corpuscular Volume 98.6 fL (81-100); NEUTROPHILS % (AUTO) 77.6 % (40-74); Platelet Count 201 bil/L (150-400)
[2017-05-27 03:03] VITALS: BP 155/81; PULSE 76; RESP 16; O2SAT 100
[2017-05-27 03:46] LABS: INR 2.45 ratio
[2017-05-27 03:51] LABS: Magnesium 2.2 mg/dL (1.6-2.6)
--- NOTE | 2017-05-27 06:01 | NUR ---
Blood Glucose HS BG 279 to assessment; scheduled HS Lantus and 3 units correctional Lispro administered. AM BG 122. No c/o pain or discomfort this shift; VSS, tele SR 80s.
[2017-05-27] MEDS: Insulin LISPRO 300 Unit/3 mL Inj SUBQ SCH ×7 (08:00→22:14)
[2017-05-27 10:17] VITALS: PULSE 62
--- NOTE | 2017-05-27 10:44 | NUR ---
[facility] signed
[2017-05-27 10:48] VITALS: BP 135/79; PULSE 74; RESP 18; O2SAT 99
[2017-05-27] MEDS: predniSONE 5 MG, predniSONE 4 MG PO SCH ×2 (10:52)
[2017-05-27] MEDS: Diltiazem CD 180 mg ER24 Capsule PO SCH (10:52)
[2017-05-27] MEDS: Insulin GLARgine 100 Unit/mL Syringe SUBQ SCH ×2 (10:59→21:14)
--- NOTE | 2017-05-27 11:20 | NUR ---
Evaluation completed. Please go to "Notes" then click on "Assessments and Notes" (bottom left corner of screen). Then select appropriate discipline tab on top of screen.
--- NOTE | 2017-05-27 11:43 | PCM.PNMED ---
Subjective Date of Service May 27, 2017 Subjective Overnight there were no acute events. The patient reports feeling better but is concerned she has gained some weight from the rehydration. She walked the halls with PT today and felt stronger. She denies any fever/chills, nausea/vomiting/diarrhea, chest pain or palpitations. Exam Vital Signs Vital Sign - Last Date Time Temp Pulse Resp B/P Pulse Ox O2 Delivery O2 Flow Rate FiO2 05/27/17 03:03 36.9 76 16 155/81 100 Room Air Intake and Output 05/26/17 05/26/17 05/27/17 Cumulative From/Thru 15:00 23:00 07:00 05/25/17 19:31 - 05/27/17 06:24 Intake Total 1920 ml 1563 ml 4207 ml Output Total 900 ml 855 ml 2955 ml Balance 1020 ml 708 ml 1252 ml Intake Oral 920 ml 800 ml 1920 ml IV Total 1000 ml 763 ml 2287 ml Output Urine Total 900 ml 855 ml 2955 ml # Voids 1 3 # Bowel Movements 1 2 Exam General: Obese elderly woman lying in bed in NAD HEENT: NCAT. PERRLA, EOMI. Membranes pink and moist without cobblestoning. There is a bruise presenton her left lateral neck/cheek. Neck: Supple without JVD or thyromegaly, but this is hard to evaluate with body habitus CV: RRR, distant heart sounds with normal S1/S2, no rubs/clicks/murmurs Pulm: Expiratory wheezes but otherwise clear to ascultation. No rales/rhonchi. Abdomen: Soft, Obese, Non-tender, Non-distended. Normoactive bowel tones. Could not evaluate organomegaly due to body habitus. Extremities: Mild edema below the knee bilaterally, no cyanosis/clubbing Neuro: A&Ox3. CN 2-12 grossly intact, no focal deficits. Muscle strength normal in all extremities. Psych: Normal mood and aspect, responds appropriately IVs and Medications Medications Reviewed: Medications were reviewed in detail Lab and Diagnostics Result Diagram: 05/26/17 1835 05/27/17 0320 Microbiology UA showed 11-50 WBC, culture reveals normal danielito Assessment & Plan Mrs. Jimenez is a 67 year old female with a history of A-fib on Warfarin, diabetes mellitus, CKD, GERD, COPD, hypertension and hyperlipidemia presents to the Emergency Department from [facility] with asymptomatic hyperkalemia. Acute kidney injury on chronic kidney disease, present on admission. Improving. - Patient Cr 3.2 on admission, baseline appears to be around 1.8, is 2.8 on 05/27. Likely Secondary to dehydration. - Dr. Lemon of Nephrology consulted, appreciate her recommendations: Stop NS today Continue to hold spironolactone until follow up with Dr. Villalba Avoid nephrotoxic medications Renally dose other medications - Continue to monitor with daily metabolic panel Hyperkalemia, present on admission, acute. Resolved. - Potassium 6.2 on admission, likely secondary to spironolactone and dehydration - Patient received insulin/dextrose and kayexalate in Emergency Department - Potassium fell to 5.1 05/27 - Continue to hold spironolactone as above - Continue to monitor with daily metabolic panel Elevated troponin, present on admission, chronic. Improving. - Patient has elevated troponin x3, trended down - Patient reports no chest pain; no telemetry changes - Likely due to acute on chronic kidney injury - Consider cardiology consult if patient becomes symptomatic or telemetry/EKG changes Diabetes mellitus type 2, chronic - Glucose 230 on admission, has fallen to 122 on 05/27 - A1c still pending - Humalog 8 units TID nutritional with medium dose correctional scale - Lantus 18 U in the morning, 22 U at night Atrial fibrillation - Continue warfarin and diltiazem Bilateral lower extremity edema - Hold furosemide until NORM resolves - Hold spironolactone as above CML - Continue imatinib Hyperlipidemia - Continue atorvastatin GERD - Continue famotidine Asthma - Pt currently on prednisone taper - Continue prednisone - Hold home inhalers. Start neb treatment if needed. Depression - Continue fluoxetine, Seroquel Other Chronic Conditions Hypertension Subdural hematoma (03/2017) Acute hypoxic respiratory failure post hernia repair (2010) Morbidly obese History of atypical chest pain Restless leg syndrome - Acetominophen as needed for headache, minor pain, fevers. - Bowel regimen as needed - Antiemetic as needed Disposition: Patient is likely here for 1-2 more days depending on her response to fluid resuscitation and continued acceptable potassium levels. Pain Evaluation: Adequate Pain Control GI Prophylaxis: Not indicated VTE Prophylaxis: Theraputic Anticoag with Warfarin Attending Statement The patient was seen and examined together with Dr. Ascencio on 05/27/2017 and I agree with the history, exam and plan as outlined in the note above. . Derek Ascencio DO May 27, 2017 09:19 Miguel Iverson MD May 27, 2017 21:47
--- NOTE | 2017-05-27 12:09 | PCM.PNNEPH ---
Subjective Date of Service May 27, 2017 Subjective Pt had Pt this morning. She was slightly short winded. BUN/Cr continue to improved. Exam Vital Signs Vital Sign - Last Date Time Temp Pulse Resp B/P Pulse Ox O2 Delivery O2 Flow Rate FiO2 05/27/17 10:48 36.7 74 18 135/79 99 Room Air Intake and Output 05/26/17 05/26/17 05/27/17 Cumulative From/Thru 15:00 23:00 07:00 05/25/17 19:31 - 05/27/17 06:24 Intake Total 1920 ml 1563 ml 4207 ml Output Total 900 ml 855 ml 2955 ml Balance 1020 ml 708 ml 1252 ml Intake Oral 920 ml 800 ml 1920 ml IV Total 1000 ml 763 ml 2287 ml Output Urine Total 900 ml 855 ml 2955 ml # Voids 1 3 # Bowel Movements 1 2 Exam General appearance: Awake, alert, oriented x3. No acute distress. Obese, lying in bed comfortably. HEENT: PERRLA. No pallor, no jaundice. No JVD. No lymphadenopathy. No thyroid enlargement. Heart: Regular rhythm. Normal S1, normal S1, S2. Distant heart sounds. Lungs: Decreased breath sound at bases. Expiratory wheezing noted. Abdomen is soft, active bowel sounds. Nontender, nondistended. No hepatosplenomegaly. Extremities: 1+ edema on the lower extremity with chronic skin changes. Lab and Diagnostics Result Diagram: 05/26/17 1835 05/27/17 0320 Microbiology UA showed 11-50 WBC, culture reveals normal danielito Plan Impression 1. Acute kidney injury on chronic kidney disease secondary to prerenal azotemia. 2. Hyperkalemia secondary to potassium sparing diuretics and intravascular volume depletion. 3. Chronic lower extremity swelling. 4. Type 2 diabetes. 5. Hypertension. 6. Chronic atrial fibrillation. 7. Asthma. 8. CML. 9. Dyslipidemia. PLAN: 1. D/c IVF and hold diuretic for another day. 2. Repeat her BMP in the morning. 3. Avoid nephrotoxins. 4. Renally dose medications. 5. Likely to be d/c'd within 24 hr. Rik Garcia MD May 27, 2017 12:09
--- NOTE | 2017-05-27 14:11 | PCM.PHAPRO ---
Progress Hyperkalemia WARFARIN DOSING PER PHARMACY [facility] SLF DFF Date -May 26-May 27-May INR 2.93 2.72 2.45 INR change -0.21 -0.27 Warf Dose UNK 3.5MG 3.5 MG Therapeutic INR. Will continue with warfarin 3.5mg which averages our the pt's weekly dosing. -Marck Andrade, PharmD Marck Andrade May 27, 2017 12:36
--- NOTE | 2017-05-27 16:35 | NUR ---
spiritual care; pt request conversational visit. pt shared briefly about medical plan and progress. Described today as "so so" with continued pain and fatigue. Pt anticipating discharge to and then eager for strength-building to return home to [facility]. pt spoke of significant role her roman catholic plays in her life. blessing.
[2017-05-27 16:42] VITALS: BP 135/57; PULSE 66; RESP 18; O2SAT 100
--- NOTE | 2017-05-27 16:42 | NUR ---
Social Work Note: Initial Assessment Data& Assessment: EMR reviewed. SW met with pt at bedside to discuss discharge plan and assess for any unmet needs, SW role explained. D/C planning checklist packet provided. Lindsay Jimenez is a 67 year old female admitted on 05/25/2017 for hyperkalemia. Pt has Medicare and [employer] insurance coverage. Pt sees Geri Joseph MD for primary care. Pt came from [facility] as a LTC pt. PT recommending return. Per MD order, SW confirmed acceptance back to facility with Melita from [facility]. Pt uses a FWW at baseline but recently has been using a wheelchair. Pt has hx with [facility]. Pt does not have LTC insurance or VA benefits. Pt declined DPOA/AD paperwork. Pt denies any other needs a this time. SW to continue to follow in case any other orders or pt needs arise. Plan: Anticipated discharge back to [facility] when medically ready as a LTC pt. Pt denies any other needs a this time. SW to continue to follow in case any other orders or pt needs arise. MONIK Swift Addendum: 05/27/17 at 1645 by DOROTHEA ABARCA Amended: Links added.
[2017-05-27 18:12] VITALS: PULSE 68; RESP 16; O2SAT 97
--- NOTE | 2017-05-27 19:33 | NUR ---
Uneventful shift No reports of chest pain/pressure/discomfort. Tele SR 60s-70s with no ectopy, DC'd per MD orders. Bilateral LE/foot pitting edema. No reports of SOB at rest, reports SOB with exertion -- ambulating in hallway with PT using FWW. SPO2 on RA 99%. Denies cough. Decreased breath sounds with faint wheezes. No reports of n/v/d/c or abdominal pain. Tolerating PO intake well, voiding without complication. Alert and oriented x3, , reports full sensation. Per patient, strength is essentially at baseline. Denies pain.
--- NOTE | 2017-05-27 20:28 | NUR ---
TRANSFER Pt transferred from 2001 to , report given to Derek Lianres RN. Pt left in wheel chair with all belongings.
--- NOTE | 2017-05-27 23:18 | DRSVH ---
PROCEDURE: US RENAL SONOGRAM INDICATIONS: NORM TECHNIQUE: Real-time scanning was performed of the kidneys and bladder, with image documentation. COMPARISON: CT, ABD/PELVIS W/O CON (PNL), 07/21/2009, 0:13. FINDINGS: Kidneys: Kidneys are normal in size. Right kidney measures 11.2 cm long; left kidney measures 9.7 c m long. Right renal cortical thickness is 1.0 cm; left renal cortical thickness is 0.7 cm. Renal cortical echotexture is increased bilaterally. No hydronephrosis. 8mm nonobstructing right renal ca lcification present involving the superior pole. Bladder: Pre-void bladder volume is 190 mL. Post-void residual is 37 mL. Pre-void images demonstra te no intraluminal masses or stones. On pre-void images, neither ureteral jets are noted with color Doppler interrogation. (Of note, ureteral jets may not be detectable in up to 25% of cases due to in sufficient differences in specific gravity between ureteral and bladder urine). Miscellaneous: No free pelvic fluid. IMPRESSION: 1. Bilateral renal cortical thinning and increased renal cortical echogenicity suggesting medical lizett al disease. 2. 8mm nonobstructing right renal calcification. 3. 37 mL post void residual. Dictated by: Florentin Bashir RRA Interpreted: Zuly Richards MD on 05/27/2017 at 10:46 Approved by: Zuly Richards M.D. on 05/27/2017 at 23:16
--- NOTE | 2017-05-28 05:56 | NUR ---
Ready for D/C Patient is ready to go home. VSS and she is in good spirits.She is ambulatory w/o assist. No issues to report.
[2017-05-28 07:20] LABS: BASOPHILS % (AUTO) 0.1 % (0-3); EOSINOPHILS % (AUTO) 1.8 % (0-5); Mean Corpuscular Hemoglobin 31.5 pg (27.0-35.0); Mean Corpuscular Volume 97.9 fL (81-100); NEUTROPHILS % (AUTO) 60.1 % (40-74); Platelet Count 164 bil/L (150-400)
[2017-05-28 07:28] LABS: INR 2.29 ratio
[2017-05-28] MEDS: Insulin LISPRO 300 Unit/3 mL Inj SUBQ SCH ×4 (08:00→12:24)
[2017-05-28] MEDS: Insulin GLARgine 100 Unit/mL Syringe SUBQ SCH (08:30)
[2017-05-28 08:40] VITALS: BP 138/67; PULSE 71; RESP 18; O2SAT 99
[2017-05-28] MEDS: Diltiazem CD 180 mg ER24 Capsule PO SCH (08:44)
[2017-05-28] MEDS: predniSONE 5 MG, predniSONE 4 MG PO SCH ×2 (08:45)
--- NOTE | 2017-05-28 08:47 | PCM.DIMED ---
Discharge Instructions Date of Service May 28, 2017 Dates of Hospitalization May 25, 2017 at 23:35 Discharge Diagnosis Discharge Diagnosis hyperkalemia due to Spironolactone Medication Instructions Additional med instructions Please hold Aldactone until you see Diet Discharge Diet: Low fat, Low Sodium, Renal Diet Activity Discharge Activity: No restrictions Patient Instructions Patient Instructions You were hospitalized with high potassium level likely related to one of the medicine you are taking. You remained stable during the hospitalization. Instruction for SNF> patient's hospital course was uneventful, K was normalized after holding Aldactone, please continue to hold until patient sees Dr. Villalba Follow-up Provider: Sarai Villalba MD Follow-up with PCP in: 1 week Lili Aparicio MD May 28, 2017 08:47
--- NOTE | 2017-05-28 10:48 | NUR ---
Called and spoke with Melita and she is able to accept patient today, planning for sweet pickle maker around 1300. Updated [employer] UNLOADER
--- NOTE | 2017-05-28 11:18 | NUR ---
1030 Dr Aparicio notified, in rounds, of BS 67, 88, and of pt refusing am insulin. 1115 Dr Aparicio notified of nephrology nursing communication of desired lasix amount at MD.
--- NOTE | 2017-05-28 11:20 | PCM.PNNEPH ---
Subjective Date of Service May 28, 2017 Subjective doing better, no new complaints. Cr trended. Repeat K 5.4. Exam Vital Signs Vital Sign - Last Date Time Temp Pulse Resp B/P Pulse Ox O2 Delivery O2 Flow Rate FiO2 05/28/17 08:40 36.4 71 18 138/67 99 Room Air Intake and Output 05/27/17 05/27/17 05/28/17 Cumulative From/Thru 15:00 23:00 07:00 05/25/17 19:31 - 05/28/17 06:35 Intake Total 1080 ml 1000 ml 6287 ml Output Total 925 ml 3880 ml Balance 155 ml 1000 ml 2407 ml Intake Oral 1080 ml 1000 ml 4000 ml IV Total 2287 ml Output Urine Total 925 ml 3880 ml # Voids 2 5 # Bowel Movements 2 Exam General appearance: Awake, alert, oriented x3. No acute distress. Obese, lying in bed comfortably. HEENT: PERRLA. No pallor, no jaundice. No JVD. No lymphadenopathy. No thyroid enlargement. Heart: Regular rhythm. Normal S1, normal S1, S2. Distant heart sounds. Lungs: Decreased breath sound at bases. Expiratory wheezing noted. Abdomen is soft, active bowel sounds. Nontender, nondistended. No hepatosplenomegaly. Extremities: 1+ edema on the lower extremity with chronic skin changes. Lab and Diagnostics Result Diagram: 05/28/17 0650 05/28/17 0918 Microbiology UA showed 11-50 WBC, culture reveals normal danielito Plan Impression 1. Acute kidney injury on chronic kidney disease secondary to prerenal azotemia. 2. Hyperkalemia secondary to potassium sparing diuretics and intravascular volume depletion. 3. Chronic lower extremity swelling. 4. Type 2 diabetes. 5. Hypertension. 6. Chronic atrial fibrillation. 7. Asthma. 8. CML. 9. Dyslipidemia. PLAN: 1. Resume lasix 80 mg daily in am. 2. d/c aldactone. 3. f/u with her primary mix chemist, Dr. Villalba in 1-2 weeks. 4. Low K diet. Low Na diet. Daily weight. 5. Repeat BMP in 2-3 days. Rik Garcia MD May 28, 2017 11:20
--- NOTE | 2017-05-28 11:32 | NUR ---
Social Work: Discharge Data: Pt is on day 3 of hospitalization. EMR reviewed, pt discussed in rounds. states pt will d/c today. D/C orders are in. UR specialist communicated with [facility], transportation set up for 1:00pm today. FARM EQUIPMENT ENGINE MECHANIC notified pt and RN. No further d/c planning needs at this time. FARM EQUIPMENT ENGINE MECHANIC will continue to follow if needs arise. Assessment: Pt who is independent at baseline. Plan: Pt will d/c back to [facility] at 1:00 via cabulance. No further d/c planning needs at this time. FARM EQUIPMENT ENGINE MECHANIC will continue to follow if needs arise. MONIK Pascual
--- NOTE | 2017-05-28 12:52 | NUR ---
Discharge Called report to Laura at [facility]. Answered all questions. Awaiting ride. Addendum: 05/28/17 at 1311 by LEONID OLIVER RN Carry-me arrived at 1255 with w/ch to transport pt to [facility]. All belongings taken with her. Pt had bed bath and shower cap hair washed prior to DC. Dressed self, only help with bath was back. Cream applied to buttock where rash present.
--- NOTE | 2017-05-28 22:25 | PCM.DC.MED ---
Discharge Summary Date of Service May 28, 2017 Dates of Hospitalization Date of Hospital Admission May 25, 2017 at 23:35 Date of Discharge: May 28, 2017 Providers: Admitting Physician: Joan Almaraz DO Primary Care Physician: Geri Joseph MD Attending Physician: Lili Aparicio MD Diagnosis at Time of Discharge Diagnosis at Time of Discharge hyperkalemia due to Spironolactone NORM, prerenal chronic dx Diabetes mellitus type 2, chronic Atrial fibrillation CML Hyperlipidemia GERD Asthma Depression Hypertension Subdural hematoma (03/2017) Acute hypoxic respiratory failure post hernia repair (2010) Morbidly obese History of atypical chest pain Restless leg syndrome Brief History HPI obtained by on 05/25 Patient is a 67 year old female with a history of A-fib on Warfarin, diabetes mellitus, CKD, GERD, COPD, hypertension and hyperlipidemia presents to the ED from [facility] with hyperkalemia. Recent blood draw this afternoon revealed elevated K+ levels and she was directed to the ED. She is currently asymptomatic. Patient was seen in the ED in 03/2017 for a subdural hematoma and was sent to [facility]. She denies any recent dizziness, syncope, fever, chills , SOB, chest pain, palpitations, nausea, vomiting or diarrhea. She was recently started on spironolactone. Pt states she was told by her leather lacer not to drink too much so has been avoiding drinking water. She is unsure why she was told this, however. On admission, Hb was 11.5, Hct 34.8, K 6.2, BUN 70, Cr 3.48, glucose 230, trop 0.113. UA was positive for 11-50 WBC, negative nitrite, small LE, few bacteria. Hospital Course Mrs. Jimenez is a 67 year old female with a history of A-fib on Warfarin, diabetes mellitus, CKD, GERD, COPD, hypertension and hyperlipidemia presents to the Emergency Department from [facility] with asymptomatic hyperkalemia. Brief hospital course, pt was admitted with NORM, which likely due to prerenal with diuretics, resolved with IVF. also noted hyperkalemia, thought to be from Aldactone, which was held. K level remained stable, deemed safe for d/c Acute kidney injury on chronic kidney disease, present on admission. Improving. - Patient Cr 3.2 on admission, baseline appears to be around 1.8, is 2.8 on 05/27. Likely Secondary to dehydration. - Dr. Lemon of Nephrology consulted, appreciate her recommendations: Stop NS today Continue to hold spironolactone until follow up with Dr. Villalba Avoid nephrotoxic medications Renally dose other medications - Continue to monitor with daily metabolic panel Hyperkalemia, present on admission, acute. Resolved. - Potassium 6.2 on admission, likely secondary to spironolactone and dehydration - Patient received insulin/dextrose and kayexalate in Emergency Department - Potassium fell to 5.1 05/27 - Continue to hold spironolactone as above - Continue to monitor with daily metabolic panel Elevated troponin, present on admission, chronic. Improving. - Patient has elevated troponin x3, trended down - Patient reports no chest pain; no telemetry changes - Likely due to acute on chronic kidney injury - Consider cardiology consult if patient becomes symptomatic or telemetry/EKG changes Diabetes mellitus type 2, chronic - Glucose 230 on admission, has fallen to 122 on 05/27 - A1c still pending - Humalog 8 units TID nutritional with medium dose correctional scale - Lantus 18 U in the morning, 22 U at night Atrial fibrillation - Continue warfarin and diltiazem Bilateral lower extremity edema - Hold furosemide until NORM resolves - Hold spironolactone as above CML - Continue imatinib Hyperlipidemia - Continue atorvastatin GERD - Continue famotidine Asthma - Pt currently on prednisone taper - Continue prednisone - Hold home inhalers. Start neb treatment if needed. Depression - Continue fluoxetine, Seroquel Other Chronic Conditions Hypertension Subdural hematoma (03/2017) Acute hypoxic respiratory failure post hernia repair (2010) Morbidly obese History of atypical chest pain Restless leg syndrome - Acetominophen as needed for headache, minor pain, fevers. - Bowel regimen as needed - Antiemetic as needed Disposition: Patient is likely here for 1-2 more days depending on her response to fluid resuscitation and continued acceptable potassium levels. Exam Vital Signs (Last) Date Time Temp Pulse Resp B/P Pulse Ox O2 Delivery O2 Flow Rate FiO2 05/28/17 08:40 36.4 71 18 138/67 99 Room Air Exam pt was examined on the day of d/c Test 05/25/17 20:18 05/25/17 21:53 05/26/17 02:42 05/26/17 19:30 Hold [place] Top Tube Received (Received) Urine Color Yellow (YELLOW) Urine Appearance Hazy (CLEAR,HAZY) Urine pH 6.0 (5.0-8.0) Urine Specific [place] 1.010 (1.003-1.035) Urine Protein Tracemg/dL (NEG,TRACE) Urine Glucose (UA) Negativemg/dL (NEGATIVE) Urine Ketones Negativemg/dL (NEGATIVE) Urine Occult Blood Trace (NEGATIVE) Urine Nitrite Negative (NEGATIVE) Urine Bilirubin Negative (NEGATIVE) Urine Urobilinogen Normalmg/dL (NORMAL) Urine Leukocyte Esterase Small (NEGATIVE) Urine RBC 0-2/hpf (0-2) Urine WBC 11-50/hpf (0-5) Urine Epithelial Cells Few/hpf (NONE-MOD) Urine Crystals None seen (NONE SEEN) Urine Bacteria Few/hpf (NONE-FEW) Urine Hyaline Casts 5/20/lpf (NONE) Urine Granular Casts None seen (NONE SEEN) Urine Waxy Casts None seen (NONE SEEN) Urine Red Blood Cell Casts None seen (NONE SEEN) Urine White Blood Cell Casts None seen (NONE SEEN) Urine Mucus None seen (None Seen) Urine Trichomonas None seen (NONE SEEN) Urine Yeast None (NONE SEEN) Urinalysis Comment None Urine Culture Reflexed Indicated Hemoglobin A1c 8.2% (4.8-5.6) Troponin T 0.084ug/L (0.0-0.011) Test 05/27/17 03:20 05/28/17 06:50 05/28/17 09:18 Magnesium Level 2.2mg/dL (1.6-2.6) White Blood Count 7.3th/mm3 (3.8-10.1) Red Blood Count 3.37mil/mm3 (3.90-5.20) Hemoglobin 10.6g/dL (12.0-15.6) Hematocrit 33.0% (35.0-46.0) Mean Corpuscular Volume 97.9fL (81-100) Mean Corpuscular Hemoglobin 31.5pg (27.0-35.0) Mean Corpuscular Hemoglobin Concent 32.1% (32.0-37.0) Red Cell Distribution Width 13.5% (12.3-15.4) Platelet Count 164bil/L (150-400) Neutrophils (%) (Auto) 60.1% (40-74) Lymphocytes (%) (Auto) 26.9% (14-46) Monocytes (%) (Auto) 10.0% (4-12) Eosinophils (%) (Auto) 1.8% (0-5) Basophils (%) (Auto) 0.1% (0-3) Prothrombin Time 24.9sec (8.1-12.5) Prothromb Time International Ratio 2.29ratio Total Bilirubin 0.2mg/dL (0.0-1.2) Aspartate Amino Transf (AST/SGOT) 18U/L (0-50) Alanine Aminotransferase (ALT/SGPT) 13U/L (0-32) Alkaline Phosphatase 51U/L (25-165) Total Protein 5.1g/dL (6.4-8.4) Albumin 3.3g/dL (3.4-5.0) Sodium Level 140mEq/L (134-144) Potassium Level 5.4mEq/L (3.5-5.2) Chloride Level 105mEq/L (97-108) Carbon Dioxide Level 22mmol/L (18-29) Blood Urea Nitrogen 53mg/dL (8-27) Creatinine 2.27mg/dL (0.57-1.00) Estimat Glomerular Filtration Rate 31mL/min (>59) Glucose Level 113mg/dL (60-99) Calcium Level 9.2mg/dL (8.5-10.1) Microbiology Results UA showed 11-50 WBC, culture reveals normal danielito Discharge Medications Discharge Medications Arformoterol Tartrate (Brovana) 15 Mcg/2 Ml Vial.neb 15 MCG IH BID Prescribed by: STARR VÁSQUEZ DO Atorvastatin (Lipitor) 10 Mg Tab 10 MG PO HS Prescribed by: STARR VÁSQUEZ DO Cholecalciferol (Vitamin D3) (Vitamin D3) 3,000 Unit Tablet 3,000 UNIT PO DAILY (Reported) Diltiazem ER (Cardizem CD) 360 Mg Cap.er.24h 360 MG PO DAILY Prescribed by: STARR VÁSQUEZ DO Famotidine (Famotidine) 20 Mg Tablet 20 MG PO BID (Reported) Fluoxetine (Prozac) 40 Mg Capsule 40 MG PO DAILY Prescribed by: STARR VÁSQUEZ DO Furosemide (Lasix) 40 Mg Tablet 120 MG PO DAILY (Reported) Imatinib Mesylate (Gleevec) 400 Mg Tablet 400 MG PO DAILY (Reported) Insulin Glargine (Lantus U100 Solostar Insulin Pen) 100 Unit/1 Ml Insuln.pen 18 UNIT SUBQ DAILY (Reported) Insulin Glargine (Lantus U100 Solostar Insulin Pen) 100 Unit/1 Ml Insuln.pen 22 UNIT SUBQ HS (Reported) Insulin Human Lispro (HumaLOG U100 Insulin Vial) 100 Unit/Ml Unit 0 SUBQ TID- INSULIN Check blood sugars before meals and at bedtime. Use correction factor only before meals. Blood Sugar Lispro Correction: <151, 0 units; 151-175, 1 unit; 176-200, 2 units; 201-225, 3 units; 226-250, 4 units; 251-275, 5 units; 276-300 , 6 units; 301-325, 7 units; 326-350, 8 units; 351-375, 9 units; 376-400, 10 units; >400, 12 units. Prescribed by: STARR VÁSQUEZ, Insulin Lispro (HumaLOG U100 Insulin Pen) 100 Unit/1 Ml Insuln.pen 4 UNIT SUBQ TIDWM (Reported) Blood Sugar Lispro Correction <151 0 units 151-175 1 unit 176-200 2 units 201-225 3 units 226-250 4 units 251-275 5 units 276-300 6 units 301-325 7 units 326-350 8 units 351-375 9 units 376-400 10 units >400 12 units Check blood sugars before meals and at bedtime. Use correction factor only before meals. Ipratropium/Albuterol Sulfate (Iprat-Albut 0.5-3(2.5) mg/3 mL Inhalant Soln) 3 Ml Ampul.neb 3 ML IH Q4HWA (Reported) Magnesium Oxide (Magnesium) 400 Mg Tablet 400 MG PO BID (Reported) PredniSONE (PredniSONE) 1 Mg Tab 9 MG PO UD (Reported) Warfarin Sodium (Warfarin Sodium) 2.5 Mg Tablet 2.5 MG PO MoWeThSat (Reported) Warfarin Sodium (Warfarin Sodium) 5 Mg Tablet 5 MG PO SunTueFri (Reported) As needed Acetaminophen (Acetaminophen) 325 Mg Tablet 650 MG PO Q4H PRN PRN For Fever ( Reported) Hydrocodone-Acetaminophen 5-325 mg (Hydrocodone-Acetaminophen 5-325 mg) 1 Each Tablet 1 TABLET PO Q6H PRN PRN For Pain (Reported) Quetiapine Fumarate (Seroquel) 25 Mg Tablet 25 MG PO HS PRN PRN For Insomnia Prescribed by: STARR VÁSQUEZ, DO Additional med instructions Please hold Aldactone until you see Followup Plan Disposition: SNF Discharge Diet: Low fat, Low Sodium, Renal Diet Discharge Activity: No restrictions Patient Instructions You were hospitalized with high potassium level likely related to one of the medicine you are taking. You remained stable during the hospitalization. Instruction for SNF> patient's hospital course was uneventful, K was normalized after holding Aldactone, please continue to hold until patient sees Dr. Villalba Follow-up Provider: Sarai Villalba MD Follow-up with PCP in: 1 week Time spent 65min Lili Aparicio MD May 28, 2017 22:25
== END 2017-05-28 12:55 | DRG 684 ==
LOC: SED 19:28 → PCC 23:35 → MOC 05-27 20:21
PROVIDERS: ADMIT Internal Medicine; ATTEND Internal Medicine
DX: N17.9 Acute kidney failure, unspecified (principal); E87.5 Hyperkalemia; J44.9 Chronic obstructive pulmonary disease, unspecified; E78.5 Hyperlipidemia, unspecified; G25.81 Restless legs syndrome; E11.22 Type 2 diabetes mellitus with diabetic chronic kidney disease; I12.9 Hypertensive chronic kidney disease with stage 1 through stage 4 chronic kidney disease, or unspecified chronic kidney disease; E86.0 Dehydration; N18.3 Chronic kidney disease, stage 3 (moderate); T50.0X5A Adverse effect of mineralocorticoids and their antagonists, initial encounter; I48.2 Chronic atrial fibrillation; Z79.4 Long term (current) use of insulin; Z79.01 Long term (current) use of anticoagulants